=== PATIENT | female | born 1995 | race Caucasian/White ===

== ENCOUNTER 2016-09-13 01:41 | Emergency (ER) ==
[2016-09-13 01:53] VITALS: BP 145/85; TEMP 97.7; BMI 33.0
[2016-09-13 02:13] LABS: ADD URINE MICROSCOPIC YES; BILIRUBIN,URINE Negative (NEGATIVE); KETONES,URINE Trace (NEGATIVE); LEUKOCYTE ESTERASE ,URINE Trace (NEGATIVE); NITRITE,URINE Negative (NEGATIVE); PROTEIN,URINE Negative (NEGATIVE); URINE, BLOOD 2+ (NEGATIVE)
[2016-09-13 02:23] LABS: SPERM,URINE 2+ (NOT PRESENT)
--- NOTE | 2016-09-13 02:25 | ED.PDOC ---
General ED Provider: Dr. FAN OBREGON Chief Complaint: Vaginal Bleeding Stated Complaint: having vaginal bleeding after intercourse today, not changed the pad yet. still bleeding. 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 - Vaginal Bleeding Complaint/Exam Symptoms Are: Still present Timing: Constant Initial Severity: Mild Current Severity: Mild Character: Reports: Bright red Aggravating: Reports: Sorrel Alleviating: Reports: None Associated Signs and Symptoms: Denies: Dizziness, Lightheadedness, Pale, UTI symptoms, Abdominal pain, Cramping, Generalized pain : 2 Para: 1 Ectopic Risk Factors: Reports: None Spontaneous AB Risk Factors: Reports: None Placental Abruption Risk Factors: Reports: None Patient Rh Status: Unknown Related Surgical History: Reports: None Abdominal Findings: Present: None Differential Diagnoses: Threatened AB, Incomplete AB Review of Systems - Review Of Systems Constitutional: Reports: No symptoms Eyes: Reports: No symptoms Ears, Nose, Mouth, Throat: Reports: No symptoms Respiratory: Reports: No symptoms Cardiac: Reports: No symptoms GI: Reports: No symptoms : Reports: Discharge Musculoskeletal: Reports: No symptoms Skin: Reports: No symptoms Neurological: Reports: No symptoms Endocrine: Reports: No symptoms Hematologic/Lymphatic: Reports: No symptoms All Other Systems: Reviewed and Negative Past Medical History - Past Medical History Previously Healthy: Yes Endocrine: Reports: None Cardiovascular: Reports: None Respiratory: Reports: None Hematological: Reports: None Gastrointestinal: Reports: None Genitourinary: Reports: None Neuro/Psych: Reports: None Musculoskeletal: Reports: None Cancer: Reports: None Last Menstrual Period: AUG 06 2016 - Surgical History General Surgical History: Reports: None - Family History Family History: Reports: None - Social History Smoking Status: Former smoker Hx Substance Use: No Alcohol Screening: Occasionally - Immunizations Tetanus Shot up to Date: Yes Physical Exam - Physical Exam Appearance: Well-appearing, No pain distress, Well-nourished Eyes: BAKARI, EOMI, Conjunctiva clear ENT: Ears normal, Nose normal, Oropharynx normal Respiratory: Airway patent, Breath sounds clear, Breath sounds equal, Respirations nonlabored Cardiovascular: RRR, Pulses normal, No rub, No murmur GI/: Soft, Nontender, No masses, Bowel sounds normal, No Organomegaly Musculoskeletal: Normal strength, ROM intact, No edema, No calf tenderness Skin: Warm, Dry, Normal color Neurological: Sensation intact, Motor intact, Reflexes intact, Cranial nerves intact, Alert, Oriented Psychiatric: Affect appropriate, Mood appropriate Critical Care Note - Critical Care Note Total Time (mins): 0 Course - Course Hematology/Chemistry: 09/13/16 02:25 09/13/16 02:25 Orders, Labs, Meds: Lab Review 09/13/16 09/13/16 02:09 02:25 WBC 8.29 RBC 4.07 L Hgb 12.1 Hct 36.2 L MCV 88.9 MCH 29.7 MCHC 33.4 RDW Coeff of Saúl 13.2 Plt Count 250 Immature Gran % (Auto) 0.6 Neut % (Auto) 62.1 Lymph % (Auto) 28.2 [place] % (Auto) 7.6 Eos % (Auto) 1.1 Baso % (Auto) 0.4 Immature Gran # (Auto) 0.1 Neut # 5.2 Lymph # 2.3 [place] # 0.6 Eos # 0.1 Baso # 0.0 Sodium 139 Potassium 4.0 Chloride 105 Carbon Dioxide 23 Anion Gap 15.0 BUN 8 Creatinine 0.78 Estimated GFR (MDRD) 92.00 BUN/Creatinine Ratio 10.25 Glucose 133 H Calcium 9.5 Total Bilirubin 0.28 AST 22 ALT 34 Alkaline Phosphatase 63 Total Protein 7.0 Albumin 3.5 Globulin 3.5 Albumin/Globulin Ratio 1.00 HCG, Quant 1781.73 Urine Color Yellow Urine Clarity Clear Urine pH 6.0 Ur Specific [place] 1.020 Urine Protein Negative Urine Glucose (UA) Negative Urine Ketones Trace Urine Blood 2+ Urine Nitrite Negative Urine Bilirubin Negative Urine Urobilinogen 1.0 Ur Leukocyte Esterase Trace Urine Microscopic RBC 10-20 Urine Microscopic WBC 0-2 Ur Squamous Epith Cells 5-10 Urine Sperm 2+ Orders Category Date Time Status CBC W/ AUTO DIFF Stat LAB 09/13/16 02:25 Completed COMPREHENSIVE METABOLIC PANEL Stat LAB 09/13/16 02:25 Completed HCG,QUANTITATIVE Stat LAB 09/13/16 02:25 Completed UA [URINALYSIS C & S IF INDICATED] Stat LAB 09/13/16 02:09 Completed Vital Signs: Temp Pulse Resp BP Pulse Ox 09/13/16 01:43 97.7 F 103 H 18 145/85 H 98 Departure - Departure Time of Disposition: 03:10 Disposition: HOME SELF-CARE Discharge Problem: Bleeding from vagina Instructions: First Trimester Vaginal Bleed (ED) Condition: Stable Pt referred to PMD for follow-up: Yes Additional Instructions: rest keep legs elevated. F/u with Obgyn Allergies/Adverse Reactions: Allergies codeine Adverse Reaction (Verified 09/13/16 01:53) Hives Home Medications: Ambulatory Orders Citalopram Hydrobromide [Celexa] 40 mg PO DAILY 09/13/16 Pnv95/Ferrous Fumarate/FA [ Tablet] 1 each PO DAILY 09/13/16 Trazodone HCl 50 mg PO BEDTIME PRN 09/13/16 Disposition Discussed With: Patient, Family
[2016-09-13 02:34] LABS: BASOPHILS % (AUTO) 0.4 % (0.0-3.0); EOSINOPHILS # (AUTO) 0.1 K/ul (0.0-0.7); EOSINOPHILS % (AUTO) 1.1 % (0.0-7.0); HEMATOCRIT 36.2 % (37.0-47.0); HEMOGLOBIN 12.1 g/dl (12.0-16.0); IMMATURE GRANULOCYTE % (AUTO) 0.6 % (0.0-5.0); LYMPHOCYTES # (AUTO) 2.3 K/uL (0.60-3.4); LYMPHOCYTES % (AUTO) 28.2 (10.0-50.0); MEAN CORPUSCULAR HEMOGLOBIN 29.7 pg (27.0-31.0); MEAN CORPUSCULAR HGB CONC 33.4 (31.8-35.4); MEAN CORPUSCULAR VOLUME 88.9 fl (81.0-99.0); MONOCYTES # (AUTO) 0.6 K/uL (0.4-2.0); MONOCYTES % (AUTO) 7.6 (0-10); NEUTROPHILS # (AUTO) 5.2 K/ul (2.0-6.9); NEUTROPHILS % (AUTO) 62.1; PLATELET COUNT 250 10^3/uL (140-440); RED BLOOD COUNT 4.07 10^6/ul (4.20-5.40); WHITE BLOOD COUNT 8.29 K/ul (4.6-10.2)
[2016-09-13 02:53] LABS: ALBUMIN 3.5 g/dL (3.4-5.0); BILIRUBIN,TOTAL 0.28 mg/dL (0.00-1.20); BUN/CREATININE RATIO 10.25; CALCIUM 9.5 mg/dL (8.2-10.2); CREATININE 0.78 mg/dL (0.60-1.30)
== END 2016-09-13 03:15 | disposition home or self-care (01) ==
LOC: ED 01:41
DX: N93.9 Abnormal uterine and vaginal bleeding, unspecified (principal); Z33.1 Pregnant state, incidental
CPT/HCPCS: 36415; 80053; 81001; 84702; 85025; 99283

== ENCOUNTER 2017-09-08 16:00 | Outpatient (CLI) ==
[2017-06-13 19:47] VITALS: BMI 41.9
== END 2017-09-08 16:01 | disposition home or self-care (01) ==
LOC: LAB 16:00
PROVIDERS: ATTEND Emergency Medicine
DX: R10.13 Epigastric pain (principal)
CPT/HCPCS: 36415; 80053; 82150; 83690; 85025

== ENCOUNTER 2017-10-07 10:09 | Outpatient (CLI) ==
[2017-06-13 19:47] VITALS: BMI 41.9
== END 2017-10-07 10:10 | disposition home or self-care (01) ==
LOC: RHC 10:09 → RHC-LAB 10:10
PROVIDERS: ATTEND Emergency Medicine
DX: J10.1 Influenza due to other identified influenza virus with other respiratory manifestations (principal)
CPT/HCPCS: 87651; 87804

== ENCOUNTER 2018-01-09 17:49 | Emergency (ER) ==
[2018-01-09 17:55] VITALS: BP 140/106; TEMP 99.7; BMI 40.3
--- NOTE | 2018-01-09 19:14 | ED.PDOC ---
General ED Provider: Dr. MABEL FREED Chief Complaint: Abscess Stated Complaint: Developed reddness and swelling inner rt thigh several days ago. States is walking freq with job and has friction to inner thighs--noted sm red area to inner thigh 2 nites ago--now has increased in size with redness noted--usually pops boils but too painful today and cabrera no longer present , Has been applying prid salve and yesterday her "popped" white head with some minimal drainage. Pain worsened today. 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 Denies fever or chills. Time Seen by Physician: 18:15 Mode of Arrival: Walk-In Information Source: Patient Exam Limitations: No limitations Primary Care Provider[facility] Nursing and Triage Documentation Reviewed and Agree: Yes Reviewed sepsis parameters & appropriate labs ordered?: Yes System Inflammatory Response Syndrome: Not Applicable Sepsis Protocol: For patient's 13 years and over: Temp is 96.8 and below OR 101 and greater Pulse >90 BPM Resp >20/minute Acutely Altered Mental Status Are patient's symptoms suggestive of a new infection, such as: -Pneumonia -Skin, Soft Tissue -Endocarditis -UTI -Bone, Joint Infection -Implantable Device -Acute Abdominal Infection -Wound Infection -Meningitis -Blood Stream Catheter Infection -Unknown System Inflammatory Response Syndrome: Not Applicable Skin Complaint Exam - Skin/Soft Tissue Complaint/Exam Symptoms Are: Still present Timing: Constant Initial Severity: Severe Current Severity: Moderate Location: Rt inner thigh Character: Reports: Redness, Swelling, Raised, Painful Aggravating: Reports: Touch Alleviating: Reports: Medications (Rest) Associated Signs and Symptoms: Reports: Itching, Tenderness. Denies: Fever ( low grade 99deg), Chills, Red streaks Related History: Denies: Similar episode, Recent trauma, Foreign body, Insect bite/sting, Recent Med change Related Surgical History: Reports: None Skin Findings: Present: Erythema, Induration, Skin lesion (sl elevation at site popped by ) Review of Systems - Review Of Systems Constitutional: Reports: Fever Eyes: Reports: No symptoms Ears, Nose, Mouth, Throat: Reports: No symptoms Respiratory: Reports: No symptoms Cardiac: Reports: No symptoms GI: Reports: No symptoms : Reports: No symptoms Musculoskeletal: Reports: No symptoms Skin: Reports: Other (reddness) Neurological: Reports: No symptoms Endocrine: Reports: No symptoms Hematologic/Lymphatic: Reports: No symptoms All Other Systems: Reviewed and Negative Past Medical History - Past Medical History Previously Healthy: Yes Endocrine: Reports: None Cardiovascular: Reports: None Respiratory: Reports: None Hematological: Reports: None Gastrointestinal: Reports: None Genitourinary: Reports: None Neuro/Psych: Reports: None Musculoskeletal: Reports: None Cancer: Reports: None Last Menstrual Period: end november - Surgical History General Surgical History: Reports: None - Family History Family History: Reports: None - Social History Smoking Status: Current every day smoker, Light tobacco smoker Hx Substance Use: No Alcohol Screening: None Physical Exam - Physical Exam Appearance: Well-appearing (some pain ), Well-nourished Ill-appearing: None Pain Distress: Mild Eyes: BAKARI, EOMI, Conjunctiva clear ENT: Ears normal, Nose normal, Oropharynx normal Respiratory: Airway patent, Breath sounds clear, Breath sounds equal, Respirations nonlabored Cardiovascular: RRR, Pulses normal, No rub, No murmur GI/: Soft, Nontender, No masses, Bowel sounds normal, No Organomegaly Musculoskeletal: Normal strength, ROM intact, No edema, No calf tenderness Skin: Warm, Dry, Normal color (18 X 10 cm area of erythrema inner mid rt thigh with central indurated area. no drainage) Neurological: Sensation intact, Motor intact, Reflexes intact, Cranial nerves intact, Alert, Oriented Psychiatric: Affect appropriate, Mood appropriate Critical Care Note - Critical Care Note Total Time (mins): 0 Course - Course Vital Signs: Temp Pulse Resp BP Pulse Ox 01/09/18 17:50 99.7 F H 130 H 20 140/106 H 96 Departure - Departure Time of Disposition: 19:15 Disposition: HOME SELF-CARE Discharge Problem: Cellulitis of right thigh, Abscess Instructions: Cellulitis (ED), Abscess (ED) Condition: Good Pt referred to PMD for follow-up: Yes (2-3 days/no work until follow u ) IPMP verified?: No Additional Instructions: Keep Rt Leg elevated, Apply warm moist heat for 20 min periods several times daily, apply drawing salve daily Take antibiotics as directed See PCP in 2 days Return to ER prn and if abscess worsens Allergies/Adverse Reactions: Allergies grapefruit Allergy (Severe, Verified 01/09/18 17:57) face swelling Patient to notify drugstore codeine Adverse Reaction (Verified 01/09/18 17:57) Hives steroids Adverse Reaction (Uncoded 01/09/18 17:57) Home Medications: Ambulatory Orders Buspirone HCl 5 mg PO d 09/08/17 Citalopram Hydrobromide [Celexa] 10 mg PO d 09/08/17 Norgestimate-Ethinyl Estradiol [Ortho Tri-Cyclen Lo Tablet] 1 each PO d Clindamycin HCl 300 mg PO QID #40 capsule 01/09/18 Hydrocodone/Acetaminophen [Collbran 5-325 Tablet] 1 each PO Q6HR PRN #10 tablet Disposition Discussed With: Patient, Family
== END 2018-01-09 19:32 | disposition home or self-care (01) ==
LOC: ED 17:49
DX: L02.415 Cutaneous abscess of right lower limb (principal); L03.115 Cellulitis of right lower limb; F17.210 Nicotine dependence, cigarettes, uncomplicated
CPT/HCPCS: 99282

== ENCOUNTER 2018-01-12 12:32 | Outpatient (CLI) | END 2018-01-12 12:33 | disposition home or self-care (01) | LOC: FCC-LAB 12:32 | PROVIDERS: ATTEND Family Medicine | DX: L02.91 Cutaneous abscess, unspecified (principal) | CPT/HCPCS: 87070 ==

== ENCOUNTER 2018-08-16 18:46 | Emergency (ER) ==
[2018-08-16 18:48] VITALS: TEMP 97.6; BMI 43.5
--- NOTE | 2018-08-16 18:58 | ED.PDOC ---
General ED Provider: Dr. MABEL MELGAR-ER Chief Complaint: Sore Throat Stated Complaint: my sinuses are draining and i am coughing up yellow stuff Time Seen by Physician: 18:56 Mode of Arrival: Walk-In Information Source: Patient Exam Limitations: No limitations Primary Care Provider: CLEMENTE AGUILA Nursing and Triage Documentation Reviewed and Agree: Yes Does patient meet sepsis criteria?: No System Inflammatory Response Syndrome: Not Applicable Sepsis Protocol: For patient's 13 years and over: Temp is 96.8 and below OR 101 and greater Pulse >90 BPM Resp >20/minute Acutely Altered Mental Status Are patient's symptoms suggestive of a new infection, such as: -Pneumonia -Skin, Soft Tissue -Endocarditis -UTI -Bone, Joint Infection -Implantable Device -Acute Abdominal Infection -Wound Infection -Meningitis -Blood Stream Catheter Infection -Unknown Respiratory Complaint Exam - Respiratory Complaint/Exam Onset/Duration: 3 days Symptoms Are: Still present Timing: Intermittent Initial Severity: Mild Current Severity: Moderate Location: Nose, Chest Character: Reports: Productive cough Aggravating: Reports: URI Alleviating: Reports: Spontaneous resolution Associated Signs and Symptoms: Reports: URI, Nasal congestion, Sore throat. Denies: Rapid breathing, Dyspnea, Fever, Chills, Chest pain, Pleuritic chest pain, Wheezing, Hemoptysis, Dizziness, Calf pain, Calf swelling, Edema Home Oxygen Use: No Recent Stress Test: No Recent Echo/LV Function: No Current Antibiotic Use: No Current Asthma Medication Use: No Respiratory Distress: None Inadequate Respiratory Effort: No Dysphagia Present: No Stridor Present: No JVD Present: No Accessory Muscle Use: No Retractions: Not Present Sinus Tenderness: Maxillary Grunting Respirations: No Kussmaul Respirations: No Differential Diagnoses: Sinusitis, URI Review of Systems - Review Of Systems Constitutional: Reports: No symptoms Eyes: Reports: No symptoms Ears, Nose, Mouth, Throat: Reports: Nose discharge, Throat pain Respiratory: Reports: Cough Cardiac: Reports: No symptoms GI: Reports: No symptoms : Reports: No symptoms Musculoskeletal: Reports: No symptoms Skin: Reports: No symptoms Neurological: Reports: No symptoms Endocrine: Reports: No symptoms Hematologic/Lymphatic: Reports: No symptoms All Other Systems: Reviewed and Negative Past Medical History - Past Medical History Previously Healthy: Yes Endocrine: Reports: None Cardiovascular: Reports: None Respiratory: Reports: None Hematological: Reports: None Gastrointestinal: Reports: None Genitourinary: Reports: None Neuro/Psych: Reports: None Musculoskeletal: Reports: None Cancer: Reports: None Last Menstrual Period: two weeks - Surgical History General Surgical History: Reports: None - Family History Family History: Reports: None - Social History Smoking Status: Former smoker Hx Substance Use: No Alcohol Screening: Occasionally - Immunizations Tetanus Shot up to Date: Yes Physical Exam - Physical Exam Appearance: Well-appearing, No pain distress, Well-nourished Eyes: BAKARI, EOMI, Conjunctiva clear ENT: Ears normal, Nose normal, Oropharynx normal, Rhinorrhea Neck: Supple Respiratory: Rhonchi Cardiovascular: RRR, Pulses normal, No rub, No murmur GI/: Soft Musculoskeletal: Normal strength, ROM intact, No edema, No calf tenderness Skin: Warm, Dry, Normal color Neurological: Sensation intact, Motor intact, Reflexes intact, Cranial nerves intact, Alert, Oriented Psychiatric: Affect appropriate, Mood appropriate Critical Care Note - Critical Care Note Total Time (mins): 0 Course - Course Orders, Labs, Meds: Orders Category Date Time Status FLU A/B MOLECULAR Stat LAB 08/16/18 18:51 Ordered MOLECULAR GROUP A STREP Stat LAB 08/16/18 18:51 Ordered Vital Signs: Temp Pulse Resp BP Pulse Ox 08/16/18 18:54 108 H 151/102 H 98 08/16/18 18:46 97.6 F 111 H 18 164/111 H 99 Departure - Departure Time of Disposition: 18:58 Disposition: HOME SELF-CARE Discharge Problem: Bronchitis, Elevated blood pressure reading Sinusitis Qualifiers: Sinusitis location: unspecified location Chronicity: acute Recurrence: non- recurrent Qualified Code(s): J01.90 - Acute sinusitis, unspecified Instructions: Rhinosinusitis (ED) Condition: Good Pt referred to PMD for follow-up: Yes IPMP verified?: No Additional Instructions: augmentin 875mg bid x 10 days --flonase nasal spray one puff each nostril bid -- -tessalon perles 200mg tid prn cough 30---avoid all cold meds due to your bp---f /u with pcp Allergies/Adverse Reactions: Allergies grapefruit Allergy (Severe, Verified 08/16/18 18:49) face swelling Patient to notify drugstore clindamycin Allergy (Intermediate, Unverified 08/16/18 18:49) rash maculopapular rash acrally. Observed. codeine Adverse Reaction (Verified 08/16/18 18:49) Hives steroids Adverse Reaction (Uncoded 08/16/18 18:49) Home Medications: Ambulatory Orders Norgestimate-Ethinyl Estradiol [Ortho Tri-Cyclen Lo Tablet] 1 each PO d Disposition Discussed With: Patient
[2018-08-16 19:18] VITALS: BP 143/97
== END 2018-08-16 19:55 | disposition home or self-care (01) ==
LOC: ED 18:46
DX: J02.9 Acute pharyngitis, unspecified (principal); R09.81 Nasal congestion; R05 Cough; J06.9 Acute upper respiratory infection, unspecified; R07.0 Pain in throat; J01.90 Acute sinusitis, unspecified
CPT/HCPCS: 87502; 87651; 99283

== ENCOUNTER 2018-09-30 14:19 | Outpatient (CLI) | END 2018-09-30 14:20 | disposition home or self-care (01) | LOC: LAB 14:19 | PROVIDERS: ATTEND Family Medicine | DX: F41.1 Generalized anxiety disorder (principal); F33.1 Major depressive disorder, recurrent, moderate; Z68.41 Body mass index [BMI] 40.0-44.9, adult | CPT/HCPCS: 36415; 80053; 84443; 85025 ==

== ENCOUNTER 2018-10-05 08:04 | Outpatient (CLI) | END 2018-10-05 08:05 | disposition home or self-care (01) | LOC: LAB 08:04 | PROVIDERS: ATTEND Family Medicine | DX: F41.1 Generalized anxiety disorder (principal); Z68.41 Body mass index [BMI] 40.0-44.9, adult; R74.8 Abnormal levels of other serum enzymes | CPT/HCPCS: 36415; 84439; 84480 ==

== ENCOUNTER 2019-09-20 12:36 | Observation (INO) ==
[2019-09-20 13:05] VITALS: BMI 43.5
[2019-09-20] MEDS ORDERED: KLONOPIN PO SCH (13:16)
[2019-09-20] MEDS ORDERED: KLONOPIN PO PRN (13:30)
[2019-09-20] MEDS ORDERED: TYLENOL PO PRN (16:24)
[2019-09-20] MEDS ORDERED: DECADRON 10 MG/ML SDV (RHC/FCC ONLY) IM STA (16:26)
[2019-09-20] MEDS ORDERED: PHENERGAN 25 MG/ML VIAL ONE ×2 (16:33→23:17)
[2019-09-20] MEDS: ROCEPHIN 1 GM/50 ML D5W 1 GM/50 ML BAG IV SCH (16:39)
[2019-09-20] MEDS: SODIUM CHLORIDE 1,000 ML IV SCH ×2 (16:40→23:10)
[2019-09-20] MEDS: PHENERGAN 25 MG/ML VIAL 25 MG in SODIUM CHLORIDE 50 ML IV PRN ×2 (16:41→23:24)
--- NOTE | 2019-09-20 16:45 | PCM ---
History of Present Illness History of Present Illness: Mrs. Debi Torres is a 24 YO CF with 48 hours history of worsening sore throat L>>R. She has history of 10+ years of tobacco 1/2 ppd. She reports children at home sick, work related sick contacts. 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 Tired of the medical world, tired of the anxiety, she changed over to working at [employer]. She is vaping now more than using cigarettes. She and I discussed this in clinic 09/19/19 and again today in hospital in room 108. She did not want nicotine patch at this time. Reviewed outpatient note from 09/19/19. She presented with c/o pain in the left anterior neck, systemic/myalgias, chills and fever. As of 09/19/19 24 hours of decreased PO intake for foods solids and liquids. She has had fever 102.4 but was 99.9 in clinic 09/19/19. She had taken tylenol 2 hours prior to eval by me on 09/19/19. Nyquil was not helping. She has had nausea prominently without emesis/diarrhea up until our visit 09/19/19. LMP 3 weeks to 1 month ago. no chance she could be per here report. PARISH generalized rated at 4/10. PARISH, body aches, fever, chills, sore throat. Minimal cough. She has had flu vaccination for the flu season. She was tachycardic, Exudate on tonsils, prominent tender anterior cervical LN zone 2. I ordered molecular strep and flu and she returned + for streptococcus but negative for influenza. I received a call early this am that she had emesis 2-3 x, blood tinged sputum, facial flushing, decreased PO intake for solids and liquids. She reports abdominal pain, myalgias, anterior neck pain, throat pain, worse with swallowing anything. Tylenol/motrin at home have not really helped. She noted she was feeling dizzy, feeling dehydrated and did not know what to do. I offered her return to clinic, outpatient fluids, admit for obs and give her IV abx and fluids as she has not yet been able to take any of the abx. I did give her rocephin 1 gram in clinic yesterday and she was instructed to take amoxil 500 BID starting today. She was unable to get this, unable to take anything PO. With her symptoms and inability to tolerate PO and Nausea/emesis x 2 I recommended short course of observation. At this time she would likely benefit from being monitored. She presented to hospital and was admitted to room 108 under my care. I saw patient after clnic at 1545 and discussed the above with her. She was aware of strep +, flu negative status. She still c/o 5/10 throat pain, 4/10 PARISH generalized w/o radiation. No nuchal stiffness, she is supple. Weight unchanged, vitals are stable, Afebrile. She noted she does not feel any better after the rocephin 1 gram IM. I have ordered 1 L NS and I have ordered 160ml/hour of maintenance fluids to make sure that she is not dehydrated. CBC/CMP in the am. She has had 2 bouts of emesis, no diarrhea. No skin rash. She has no rash under breasts, axilla, groin, no issues with extremities. Pain in throat has not improved at all, unable to drink liquids due to pain. She has been using tylenol/motrin. No pain in abdomen. No pain in pelvic region. +Myalgias, + back pain, neck pain, cervical pain. Tobacco use/Vaping. LMP 3.5 weeks ago. She is aware of reaction to prednisone. I discussed decadron as a means to improve her symptoms. If any GI issues will provide short course of PPI. Exam: Vital Signs Temp 97.9 F 09/20/19 16:45 Pulse 98 H 09/20/19 16:45 Resp 19 09/20/19 16:45 BP 138/74 09/20/19 16:45 Pulse Ox 98 09/20/19 16:45 Intake & Output 09/19/19 09/20/19 09/20/19 23:59 11:59 23:59 Intake Total 240 / 240 Balance 240 / 240 Weight 270 lb Intake: Oral 240 / 240 Other: Meal Lunch Percent of Meal Consumed 100% Voiding Method Toilet Height 5 ft 6 in Body Mass Index (BMI) 43.5 Constitutional: Appearance-No acute distress, no respiratory distress. Facial flushing is present. Appears Consistent with stated age. Orientation- Oriented x 3, alert Gait-Normal pace, normal arm movement. Build and Nutrition-[obese female] General- Patient is pleasant and cooperative with the interview and exam. Integumentary: General-No rashes, Kimberly present. No rash under breast, inner thigh buttock. Full skin exam completed. Small healing ? boil right posterior flank. NO cellulitis. NO other skin changes. Palpation- Normal skin moisture/turgor. Skin is warm to touch, appropriate. Capillary refill is normal bilateral Upper and lower extremity. Head/Neck: Head- normocephalic and atraumatic. Neck- without visible/palpable lumps or pulsations. Palpation- No bony tenderness about head/neck along frontal, occipital, temporal, parietal, mastoid, zygoma, orbit or any other location. NO temporal artery tenderness. No TMJ tenderness. Neck Supple. Thyroid-No thyromegaly, no nodules LN: Prominent zone [address] R=L. Tenderness present. Eye: Bilaterally PERRLA, EOMI. No discharge. Upper and lower eyelids are normal. Sclera/conjunctiva normal without discharge. Cornea is normal and clear. Lens is normal. Eyeball appears normal. No ciliary flushing, no conjunctival injection. ENMT: Pinna- normal without tenderness or erythema. External auditory canal Left- normal without erythema or discharge, no excessive cerumen. External auditory canal Right-normal without erythema or discharge, no excessive cerumen. TM left- Cee/pearly, normal light reflex and anatomy TM Right- Cee/pearly, normal light reflex and anatomy Hearing Assessment-normal to conversational speech. Nose and sinus- No sinus tenderness along frontal/maxillary region. External appearance normal and midline. Nares- bilateral quiet airflow, no discharge. Nasal mucosa- No bleeding noted and no ulcerations observed. [place], moist. Turbinates non boggy. Lips- normal color, moist without cracks/lesions Oral Cavity/Palate- hard/soft palate intact without lesions, oral mucosa pink and moist. Dentition assessed [and average/good] and discussed appropriate oral care. Tongue normal midline. Oropharynx- pharyngeal erythema, Uvula midline. palatal arch intact. Tonsils with exudate, 3+ tonsils. No obvious post nasal drip. No exudate. Salivary glands- Non tender to palpation CHEST/LUNG: Inspection- symmetric chest wall no pectus deformity. Normal effort, no distress, no use of accessory muscles. Palpation- nontender sternum, ribline. No abnormal pulsations. Auscultation- Breath sounds normal throughout all lung pedroza. Normal tracheal sounds, Normal bronchial sounds overlying sternum, Bronchovessicular sounds normal between scapulae posteriorly, Normal vessicular breath sounds heard throughout periphery. Lungs are clear today. Adventitious sounds- No wheezes, rales, rhonchi. CARDIOVASCULAR: Carotid artery- normal, no bruits or abnormal pulsations. Jugular vein- no pulsations. Palpation/Percussion- Normal PMI, no palpable thr ill Auscultation- Regular rate and rhythm. No murmur noted in sitting, supine positions. Extremities- no digital clubbing, cyanosis, edema, increased warmth. ABDOMEN: Inspection- normal and no visible pulsations. Normal contour. Auscultation- Bowel sounds normal, no abdominal bruits. Palpation/Percussion- soft, non-tender, no rebound tenderness, no rigidity (guarding), no jar tenderness, no masses. Liver-no hepatomegaly, Spleen no splenomegaly, Hernias- none. Rectal not examined. Peripheral Vascular: Upper extremity Left- Normal temperature with pink nailbeds and no ulcerations. Upper extremity Right- Normal temperature with pink nailbeds and no ulcerations. Lower extremity- Normal temperature with pink nailbeds and no ulcerations. DP pulses 2+ bilaterally. Pedal hair intact. Normal capillary refill. Edema- No edema. Musculoskeletal: Generalized-No generalized swelling or edema of extremities, no digital clubbing or cyanosis, neurovascularly intact all four extremities. Upper extremity- Symmetrical posture. No visible deformity. Normal sensation along medial and lateral upper extremity proximally and distally. NO tenderness overlying shoulder, lateral/medial epicondyle. Studio Technician Video Operator 5/5 and strength 5/5 bilateral UE. Elbow palpated, no tenderness overlying olecranon. Normal supination, pronation to active/passive ROM and to resisted rotation. Bicep insertion/tricep insertion appear normal without obvious pathology. Rotator cuff evaluated and intact. Normal wrist ROM bilaterally. Normal hand movement, intrinsic muscles of hands normal. No tenderness to palpation of hands/wrists/elbows. Lower extremity- Hip: Not tender to palpation, no pain, no swelling, edema or erythema of surrounding tissue, normal strength and tone. Normal appearing hip ROM bilaterally without pain. Knee: Knee ROM normal. No tenderness overlying trochanters, no tenderness about patella, quad tendon, patellar tendon. No tenderness at tibial tuberosity. Ankle: normal ROM not tender to palpation along medial/lateral malleolus. Foot: Normal movement of toes, no tenderness bilateral feet/toes. Normal foot type. Spine/Ribs- No deformities, masses or tenderness, no known fractures, normal strength, Normal ROM. Normal stability No tenderness along C/T/L spine. Normal appearing ROM about spine. Neurological: General- Moves all 4 extremities symmetrically. Symmetrical face and body posture. Cranial nerves- individually evaluated II-XII and intact. PERRLA, Normal EOMI, visual/special senses appear intact, Face is symmetrical and normal sensation/movement, normal tongue, normal strength/posture of neck musculature. Reflexes- intact with DTR 2+ patellar, Achilles, bicep, brachial, tricep. Ankle clonus normal with 2 beats. Strength- 5/5 bilateral UE and LE. Soft touch- intact bilateral UE and LE. Temperature sensation- intact bilateral UE and LE. . Neuropsych: Oriented- Person, place, time. (AAOx3), Mood/affect- normal and congruent. Able to articulate well. Speech-Normal speech, normal rate, normal tone, normal use of language, volume and coherence. Thought content- normal with ability to perform basic computations and apply abstract thought/reason. Associations- intact, no SI/HI, no hallucinations, delusions, obsessions. Judgment/insight- Appropriate. Memory-Recall intact, remote and recent memory intact. Knowledge- Age appropriate fund of knowledge, concentration and attention span normal. Lymphatic: Head/Neck- normal size and non tender to palpation except for zone [address] Axillary- normal size and non tender to palpation. Femoral and Inguinal- normal size and non tender to palpation. Review of Systems Constitutional: Reports fever, chills, weakness, fatigue and loss of appetite Eyes: Denies blurred vision, double-vision, discharge, itching, pain and redness Ears: Denies pain, bleeding, drainage and ringing Nose: Denies bleeding, congestion and discharge Throat: Reports pain and swelling; Denies voice change Mouth: Denies bleeding, pain and swelling Respiratory: Denies cough, shortness of air, wheeze, hemoptysis and pain with breathing Cardiovascular: Denies chest pain, left arm pain, diaphoresis, PND, orthopnea, edema and palpitations Gastrointestinal: Reports nausea and vomiting; Denies abdominal pain, diarrhea, melena, hematemesis, hematochezia and dysphagia Genitourinary: Denies dysuria, hematuria, frequency, incontinence, flank pain, vaginal discharge and abnormal bleeding Neurological: Reports headache, dizziness and weakness; Denies seizure, numbness, speech difficulty and problems with walking Musculoskeletal: Reports pain (myalgia generalized. ) Skin: Denies rash, pruritus and lacerations Immunology: Denies hives Hematology: Denies easy bruising Endocrine: Denies weight changes Psychiatric: Reports anxiety and sleeplessness; Denies depression, hopelessness, suicidal and hallucinations Habits: Reports tobacco use Allergies Allergies Allergy/AdvReac Type Severity Reaction Status Date / Time grapefruit Allergy Severe face Verified 09/19/19 13:19 swelling clindamycin Allergy Intermediate rash Verified 09/19/19 13:19 prednisone AdvReac Intermediate stomach Verified 09/19/19 14:30 issues codeine AdvReac Hives Verified 09/19/19 13:19 [facility] Medical History Anxiety Hypertension Family History (Updated 09/20/19 @ 12:46 by ZACKARY CASIANO RN) Mother Diabetes Hypertension Father Bone cancer BROTHER Chronic mental illness Asthma MATERNAL GRANDMOTHER Cervical cancer Social History Smoking and tobacco status: Current every day smoker Tobacco type: e-cigarettes Quit status: not considering quitting Alcohol intake: never Substance use type: does not use [place]/latter day: NONE Household members: spouse and children Marital status: M Lives independently: Yes Daycare: no daycare Number of children: 2 Number of grandchildren: 0 Highest education level completed: Associate degree: occupational, technical, vocational program Current occupational status: employed Sexually active: Yes Do you think of yourself as: straight/heterosexual Current gender identity: female Seatbelt use: always Drives intoxicated or rides with intoxicated tractor driver: No Water heater temperature set < 120 degrees: Yes Working smoke detector in home: Yes Fire extinguisher in home: Yes Carbon monoxide detector in home: Yes Firearms in home: Yes Firearms unloaded and locked: Yes Medications Medications: Medications Generic Name Dose Route Start Last Admin Trade Name Freq PRN Reason Stop Dose Admin Acetaminophen 500 mg 09/20/19 16:24 Tylenol PO Q8H PRN fever pain Clonazepam 0.5 mg 09/20/19 13:30 Klonopin PO DAILY PRN ANXIETY Enoxaparin Sodium 40 mg 09/21/19 09:00 Lovenox SUBCUT DAILY COUNT INCLUDES THE [facility] Sodium Chloride 1,000 mls @ 160 mls/hr 09/20/19 16:30 Sodium Chloride IV .Q6H15M COUNT INCLUDES THE [facility] CEFTRIAXONE/D5W 1 GM PREMIX 1 gm in 50 mls @ 75 mls/hr 09/20/19 16:30 Rocephin 1 Gm/50 Ml D5w IV 09/23/19 16:29 DAILY COUNT INCLUDES THE [facility] Promethazine HCl 25 mg/ Sodium 51 mls @ 75 mls/hr 09/20/19 16:23 Chloride IV Q6H PRN Nausea Non-Formulary Medication 200 mg 09/20/19 21:00 Fluvoxamine PO BEDTIME COUNT INCLUDES THE [facility] Non-Formulary Medication 1 each 09/20/19 21:00 Norgestimate-Ethinyl Estradiol [Ortho Tri-Cyclen Lo (28)] PO BEDTIME COUNT INCLUDES THE [facility] Body Composition Height: 5 ft 6 in Weight: 270 lb Body Mass Index (BMI): 43.5 Vital Signs Temperature: 97.9 F Pulse Rate: 98 Respiratory Rate: 19 Blood Pressure: 138/74 O2 Sat by Pulse Oximetry: 98 Physical Examination Appearance: Reports Well-appearing, Ill-appearing and Obese Ill-appearing: Moderate Eyes: Reports BAKARI, EOMI and Conjunctiva clear ENT: Reports Ears normal and Nose normal; Denies Oropharynx normal Neck: Supple Respiratory: Reports Airway patent, Breath sounds clear, Breath sounds equal and Respirations nonlabored; Denies Crackles, Rhonchi, Wheezes and Retractions Cardiovascular: Reports RRR, Pulses normal and No murmur; Denies No rub, Irregular rhythm, Tachycardia, Bradycardia, Abnormal pulses and Murmur GI/: Reports Soft, Nontender, Bowel sounds normal and No Organomegaly; Denies Tender, Mass, Hepatomegaly and Splenomegaly Musculoskeletal: Reports Normal strength, ROM intact, No edema and No calf tenderness; Denies Limited ROM and Limited strength Skin: Reports Warm, Dry and Normal color; Denies Pale and Diaphoretic Neurological: Reports Sensation intact, Motor intact, Reflexes intact, Cranial nerves intact, Alert and Alert to pain Psychiatric: Reports Affect appropriate and Mood appropriate Lab/Tests/Diagnostic Imaging Lab/Tests/Diagnostic Imaging: Orders Category Date Time Status PLACE PATIENT OBSERVATION .TO MEDSUR (MONITORED BED ADMISSION 09/20/19 16:23 Active ) OXYGEN Routine CARDIO 09/20/19 16:21 Ordered ACTIVITY .Up ad Lorraine CARE 09/20/19 16:20 Active INTAKE & OUTPUT Q8HR CARE 09/20/19 16:20 Active TELEMETRY MONITORING TELE CARE 09/20/19 16:23 Active VITAL SIGNS Q8HR CARE 09/20/19 16:20 Active REGULAR DIET DIETARY 09/20/19 Dinner Ordered CBC W/ AUTO DIFF DAILY@0600 LAB 09/21/19 06:00 Ordered CBC W/ AUTO DIFF DAILY@0600 LAB 09/22/19 06:00 Ordered COMPREHENSIVE METABOLIC PANEL DAILY@0600 LAB 09/21/19 06:00 Ordered COMPREHENSIVE METABOLIC PANEL DAILY@0600 LAB 09/22/19 06:00 Ordered Acetaminophen [Tylenol] MEDS 09/20/19 16:24 Active 500 mg PO Q8H PRN Ceftriaxone/D5w 1 gm Premix [Rocephin 1 gm/50 ml D5w] MEDS 09/20/19 16:30 Active 1 gm in 50 ml IV DAILY Clonazepam [Klonopin] MEDS 09/20/19 13:16 Discontinued 0.5 mg PO DAILY Clonazepam [Klonopin] MEDS 09/20/19 13:30 Active 0.5 mg PO DAILY PRN Dexamethasone Sod Phosphate [Decadron 10 mg/ml Sdv (c MEDS 09/20/19 16:26 Discontinued /[facility] Only)] 8 mg IM ONCE STA Enoxaparin Sodium [Lovenox] MEDS 09/21/19 09:00 Active 40 mg SUBCUT DAILY Promethazine HCl [Phenergan 25 mg/ml Vial] MEDS 09/20/19 16:33 Discontinued 25 mg .ROUTE .STK-MED ONE Promethazine HCl [Phenergan 25 mg/ml Vial] 25 mg MEDS 09/20/19 16:23 Active 0.9 % Sodium Chloride [Sodium Chloride] 50 ml IV Q6H Sodium Chloride 0.9% [Sodium Chloride] 1,000 ml MEDS 09/20/19 16:30 Active IV 160 mls/hr fluvoxamine MEDS 09/20/19 21:00 Active 200 mg PO BEDTIME norgestimate-ethinyl estradiol [Ortho Tri-Cyclen LO (28 MEDS 09/20/19 21:00 Active )] 1 each PO BEDTIME RESUSCITATION STATUS Routine OTHERS 09/20/19 12:57 Ordered Medications Generic Name Dose Route Start Last Admin Trade Name Freq PRN Reason Stop Dose Admin Acetaminophen 500 mg 09/20/19 16:24 Tylenol PO Q8H PRN fever pain Clonazepam 0.5 mg 09/20/19 13:30 Klonopin PO DAILY PRN ANXIETY Enoxaparin Sodium 40 mg 09/21/19 09:00 Lovenox SUBCUT DAILY COUNT INCLUDES THE [facility] Sodium Chloride 1,000 mls @ 160 mls/hr 09/20/19 16:30 Sodium Chloride IV .Q6H15M [facility] CEFTRIAXONE/D5W 1 GM PREMIX 1 gm in 50 mls @ 75 mls/hr 09/20/19 16:30 Rocephin 1 Gm/50 Ml D5w IV 09/23/19 16:29 DAILY COUNT INCLUDES THE [facility] Promethazine HCl 25 mg/ Sodium 51 mls @ 75 mls/hr 09/20/19 16:23 Chloride IV Q6H PRN Nausea Non-Formulary Medication 200 mg 09/20/19 21:00 Fluvoxamine PO BEDTIME AKUA Non-Formulary Medication 1 each 09/20/19 21:00 Norgestimate-Ethinyl Estradiol [Ortho Tri-Cyclen Lo (28)] PO BEDTIME AK[facility] Discontinued Medications Generic Name Dose Route Start Last Admin Trade Name Freq PRN Reason Stop Dose Admin Clonazepam 0.5 mg 09/20/19 13:16 09/20/19 14:18 Klonopin PO Not Given DAILY COUNT INCLUDES THE [facility] Dexamethasone Sodium Phosphate 8 mg 09/20/19 16:26 Decadron 10 Mg/Ml Sdv (Rhc/Fcc Only) IM 09/20/19 16:27 ONCE STA Assessment (1) Strep pharyngitis: Status: Acute Code(s): J02.0 - Streptococcal pharyngitis SNOMED Code(s): 65426947 (2) Smokes 1/2 pack a day or less: Status: Acute Code(s): F17.210 - Nicotine dependence, cigarettes, uncomplicated SNOMED Code(s): 478992927 (3) Dehydration: Status: Acute Code(s): E86.0 - Dehydration SNOMED Code(s): 43513935 (4) BMI 40.0-44.9, adult: Status: Acute Code(s): Z68.41 - Body mass index (BMI) 40.0-44.9, adult SNOMED Code(s): 462033715 (5) Emesis: Status: Acute Code(s): R11.10 - Vomiting, unspecified SNOMED Code(s): 412181941 Plan Plan: Strep Pharyngitis: [facility] day 1, dose #2. She has not had oral abx yet, no ability to tolerate liquids. We reviewed the Ddx viral URI with post nasal drip, strep pharyngitis, mononucleosis, viral pharyngitis such as herpangina H/F/M syndrome, influenza, tonsillar abscess. Uvula is midline, she has no deviation of the palatal arch. Tender anterior cervical LN. Patient has acute pharyngitis by history and exam without improvement 24 hours after IM abx in clinic. She has failed to obtain outpatient abx. Reviewed exposures and travel. We discussed antibiotic options, to include PCN (Amoxil as first line) and macrolides as first line therapy and we will continue 10 day course of amoxil once she is tolerating PO again. Discussed risks/benefits allergies to medications today. Due to strep and strep treatment, would recommend disposal of tooth brush. NO school or work until fever free 24 hours or after 24 hours of abx if no fever. Gargle salt water BID. Fluid hydration encouraged. We discussed R/B/A to steroids. She has allergy to prednisone w/ GI upset. WE discussed today the need to use this to reduce swelling/pain in throat. Consider CT of neck if not improving. No e/o palatal arch changes or tonsillar abscess clinically. No raspy voice. NO thyroid nodules, no thyroid fullness, no voice change in general. Risks/benefits of abx and steroids discussed with patient today. Decadron, dexamethasone, methylprednisolone, prednisone. Pt notified of potential pros/risks of steroid treatment including rapid improvement of condition; allergic reaction, psychologic reaction (depression, anxiety, insomnia), skin change at injection site (color, dimpling), muscle weakness, changes in blood sugar, cataracts/glaucoma, AVN. This list is not all inclusive and patient is aware they may refuse treatment. - Admit observation - Telemetry - CBC/CMP in am 09/21/19 - Rocephin 1 gram IV daily until tolerating PO intake. - tylenol 500 Q 8 hours. - Decadron 8mg IM once. Dehydration: No urinary symptoms. LMP up to date. Phenergan 25mg q 8 hours IV PRN. - 1 L NS fluid bolus - 160ml/hour NS Vaping: Tobacco Cessation discussed today for 2 minutes. We reviewed lifestyle choices and discussed quitting. Ready to quit status discussed. The risks and hazards of continued tobacco abuse were discussed with the patient today and total tobacco cessation as recommended. It was clearly and unambiguously explained that continued tobacco usage will adversely affect overall morbidity and mortality of the patient. Patient was informed that tobacco use can lead to numerous cancers, worsening of cardiovascular and pulmonary systems and that lung damage is often permanent and irreversible. I advised the patient to inform me if any further assistance is requested, as we can offer counseling services, nicotine replacement inhaled, patch, lozenge, gum, or prescription medications to include Chantix or Wellbutrin for assistance. I will reassess the interest in tobacco cessation at the next and all subsequent visits. Diet: Regular diet as tolerated. DVT Prophylaxis: 40mg subcutaneous lovenox. - Lovenox 40mg subcutaneous. BMI 43: Discussed the federal guidelines suggest a healthy goal BMI of 18.5-24.9 for people 18-65 and 23-30 for people age 65 and older. Overweight is considered BMI 25-30, Obesity 30-40 and Morbid obesity is defined as >100 lb overweight or BMI >40. With a BMI above goal, it is recommended to utilize a diet/exercise program to get back into the appropriate range. Consider referral to geoint analyst. For BMI >40 consider referral to bariatrics. If not already monitoring intake. I would recommend at least to keep a food diary. Document everything that is consumed into a food diary. Studies have shown that patients can lose up to 2x the weight by keeping track of foods. Offered handout on weight loss techniques. Apps that may be of benefit include [employer] [place] [employer], Lose it. Regular exercise encouraged. Start with walking 5-10 minutes at a pace th at is difficult to carry a conversation. If chest pain/SOA stop and f/u in office. Outpatient w/u encouraged. Anxiety: Chronic established problem. Current Status STABLE. Continue home meds. Activity: Ad lorraine. Disposition: 50 minute spent face to face admission today. Labs ordered for tomorrow. Fluids ordered, IV abx ordered. Advance diet as tolerated. Suspect 24-48 hours hospital stay.
[2019-09-20] MEDS ORDERED: SODIUM CHLORIDE 1,000 ML IV SCH (17:00)
[2019-09-20] MEDS: MORPHINE 2 MG/ML SYRINGE IVP PRN (20:42)
[2019-09-20] MEDS ORDERED: FLUVOXAMINE 200 MG PO SCH (21:00)
[2019-09-20] MEDS ORDERED: NORGESTIMATE ETHINYL ESTRADIOL PO SCH (21:00)
[2019-09-21] MEDS: MORPHINE 2 MG/ML SYRINGE IVP PRN (03:17)
[2019-09-21 05:08] VITALS: BP 116/78; TEMP 97.6
[2019-09-21 05:27] LABS: HEMATOCRIT 36.1 % (37.0-47.0)
--- NOTE | 2019-09-21 07:45 | PCM.DC ---
Final Diagnosis: 1. Strep Pharyngitis 2. Emesis with Dehydration 3. Chronic anxiety: stable, on benzo 4. BMI 43.6 5. Vaping (1) Strep pharyngitis: Status: Acute Code(s): J02.0 - Streptococcal pharyngitis SNOMED Code(s): 58192873 (2) Smokes 1/2 pack a day or less: Status: Acute Code(s): F17.210 - Nicotine dependence, cigarettes, uncomplicated SNOMED Code(s): 719671327 (3) Dehydration: Status: Acute Code(s): E86.0 - Dehydration SNOMED Code(s): 24097148 (4) BMI 40.0-44.9, adult: Status: Acute Code(s): Z68.41 - Body mass index (BMI) 40.0-44.9, adult SNOMED Code(s): 979275596 (5) Emesis: Status: Acute Code(s): R11.10 - Vomiting, unspecified SNOMED Code(s): 782421552 Reason for Hospitalization: 1. Strep Pharyngitis throat pain, emesis intolerance of PO liquids/solids. 2. Dehydration 3. Chronic anxiety 4. Vaping 5. BMI 43.6 6. Anxiety chronic. Prognosis at Discharge: Markedly improved, nearly back to baseline Condition at Discharge: Stable/Improved Medications at Discharge: Ambulatory Orders Medication Instructions Recorded norgestimate-ethinyl estradiol 1 ea PO BEDTIME 09/08/17 [Ortho Tri-Cyclen Lo Tablet] clonazepam [Klonopin] 0.5 mg PO dailyb prn 14 Days #14 01/16/19 tab-cap amoxicillin 500 mg capsule 500 mg PO BID 10 Days #20 cap 09/19/19 fluvoxamine 100 mg tablet 200 mg PO QHS tab 09/19/19 Written Rx for Dexter 5/325 1/2 to 1 PO BID provided to patient. CROWNING HAMMER OPERATOR printed and scanned into chart. Will send outpatient order for beto COBB as well #10. Lab/Diagnostics: Laboratory Results - last 24 hr 09/21/19 09/21/19 04:42 04:42 WBC 9.61 RBC 4.03 L Hgb 11.9 L Hct 36.1 L MCV 89.6 MCH 29.5 MCHC 33.0 RDW Coeff of Saúl 12.9 Plt Count 252 Immature Gran % (Auto) 0.3 Neut % (Auto) 85.5 H Lymph % (Auto) 11.9 [place] % (Auto) 2.3 Eos % (Auto) 0.0 Baso % (Auto) 0.0 Immature Gran # (Auto) 0.0 Neut # (Auto) 8.2 H Lymph # (Auto) 1.1 [place] # (Auto) 0.2 L Eos # (Auto) 0.0 Baso # (Auto) 0.0 Sodium 138.3 Potassium 4.42 Chloride 106.8 Carbon Dioxide 22.6 Anion Gap 13.32 BUN 7.9 Creatinine 0.62 Estimated GFR (MDRD) 116.00 BUN/Creatinine Ratio 12.74 Glucose 161.5 H Calcium 8.80 Total Bilirubin 0.22 AST 16.8 ALT 15.0 Alkaline Phosphatase 73.5 Total Protein 7.34 Albumin 4.05 Globulin 3.29 Albumin/Globulin Ratio 1.23 Education Provided to Patient and Family: 1. Strep pharyngitis 2. Antibiotic stewardship 3. Vaping/Tobacco avoidance 4. BMI 43/Weight reduction 5. Opiate Education 6. Benzo +opiate education Follow-ups: 1. Dr. Art in 1 week. Discharge Disposition: Home Hospital Course: Ms. Debi Torres presented to hospital 09/20/19 after discussion with me about inability to tolerate PO intake, emesis, worsening symptoms. She was unable to take oral abx and thus we offered outpatient fluids vs observation hospital admission. She chose the later and was admitted to obs status room 108. She received 1 G rocephin 24 hours prior, never started amoxiicillin 500mg BID that was ordered for her. She did not want steroids outpatient and thus presented with minimal improvement. Last PM she was admitted to obs with worsening dehydration, intolerance to PO intake and worsening sore throat. We admitted her to observation, continued rocephin 1 gram IV daily, was given 1 L bolus of NS, then 160ml/hr of fluids as per routine normal maintenance. Tylenol ordered, phenergan ordered. Pain was not controlled and I added morphine 2mg q 6 hours. This am I checked on patient again 7:15-7:45 and reviewed her evening documentation. Vitals this am 116/78, afebrile at 97.6, hr 65, rr 20 and O2 95%. She had a total of 1804ml in 2 voids, no BM. She did get a snack overnight. Am labs showed CBC with WBC 9.61, hgb 11.9 and mildly anemic likely dilutional, plt 252. CMP was okay with sodium 138.3, K+ 4.42, BUN 7.9, Cr 0.62, glucose 161.5. AST 16.8, alt 15. At 1900 she reported to nursing throat on fire and was given 2 mg IV morphine. Showered at 2100, ate sandwich at 2200 and noted improvement. 2300 resting, 00:00 nausea and took some phenergan. RLS noted aroun d0200 and morphine given again around 2359-2722. IVF ran through the night at 160ml. NO peripheral edema this am. She felt "like a new person" this am. This am no sore throat, tolerating PO, happy with the steroid but did not like the steroid at the same time due to RLS like symptoms. Today her symptoms are better, she is ready for d/c as she has reached the point of maximal improvement from the hospitalization. We will d/c her home, f/u in 1 week. She is recommended to start the amoxil today and use BID x 10 days. Declined steroids. We did check CROWNING HAMMER OPERATOR and will provide patient with rx for norco for the next few days. CROWNING HAMMER OPERATOR negative. 30 minutes spent on rounding and d/c of patient from hospital today, not to include charting/documentation. Reviewed labs, reviewed meds, provided new rx, discussed case josef nurse and with case management. No imaging to review. Telemetry showed ST NE 0.16 and QRS 0.08. DAY OF D/C EXAM: Vital Signs - 24 hr 09/20/19 16:45 09/20/19 17:52 09/20/19 22:00 Temperature 97.9 F 98.5 F 97.6 F Pulse Rate 98 H 108 H 91 H Respiratory Rate 19 18 16 Blood Pressure 138/74 137/83 99/48 L O2 Sat by Pulse Oximetry 98 97 95 09/21/19 02:00 09/21/19 05:06 09/21/19 08:00 Temperature 97.4 F L 97.6 F Pulse Rate 81 65 Respiratory Rate 18 20 19 Blood Pressure 120/75 116/78 O2 Sat by Pulse Oximetry 96 95 Constitutional: Appearance-No acute distress, no respiratory distress. Facial flushing is present. Appears Consistent with stated age. Orientation- Oriented x 3, alert Gait-Normal pace, normal arm movement. Build and Nutrition-[obese female] General- Patient is pleasant and cooperative with the interview and exam. Integumentary: General-No rashes, Head/Neck: Head- normocephalic and atraumatic. Neck- without visible/palpable lumps or pulsations. Palpation- No bony tenderness about head/neck along frontal, occipital, temporal, parietal, mastoid, zygoma, orbit or any other location. NO temporal artery tenderness. No TMJ tenderness. Neck Supple. Thyroid-No thyromegaly, no nodules LN: Prominent zone [address] R=L. Tenderness present. ENMT: Pinna- normal without tenderness or erythema. External auditory canal Left- normal without erythema or discharge, no excessive cerumen. External auditory canal Right-normal without erythema or discharge, no excessive cerumen. TM left- Cee/pearly, normal light reflex and anatomy TM Right- Cee/pearly, n ormal light reflex and anatomy Hearing Assessment-normal to conversational speech. Nose and sinus- No sinus tenderness along frontal/maxillary region. External appearance normal and midline. Nares- bilateral quiet airflow, no discharge. Nasal mucosa- No bleeding noted and no ulcerations observed. [place], moist. Turbinates non boggy. Lips- normal color, moist without cracks/lesions Oral Cavity/Palate- hard/soft palate intact without lesions, oral mucosa pink and moist. Dentition assessed [and average/good] and discussed appropriate oral care. Tongue normal midline. Oropharynx- pharyngeal erythema, Uvula midline. palatal arch intact. Tonsils with exudate, 3+ tonsils. No obvious post nasal drip. No exudate. Salivary glands- Non tender to palpation CHEST/LUNG: Inspection- symmetric chest wall no pectus deformity. Normal effort, no distress, no use of accessory muscles. Palpation- nontender sternum, ribline. No abnormal pulsations. Auscultation- Breath sounds normal throughout all lung pedroza. Normal tracheal sounds, Normal bronchial sounds overlying sternum, Bronchovessicular sounds normal between scapulae posteriorly, Normal vessicular breath sounds heard throughout periphery. Lungs are clear today. Adventitious sounds- No wheezes, rales, rhonchi. CARDIOVASCULAR: Carotid artery- normal, no bruits or abnormal pulsations. Jugular vein- no pulsations. Palpation/Percussion- Normal PMI, no palpable thrill Auscultation- Regular rate and rhythm. No murmur noted in sitting, supine positions. Extremities- no digital clubbing, cyanosis, edema, increased warmth. ABDOMEN: Inspection- normal and no visible pulsations. Normal contour. Auscultation- Bowel sounds normal, no abdominal bruits. Palpation/Percussion- soft, non-tender, no rebound tenderness, no rigidity (guarding), no jar tenderness, no masses. Liver-no hepatomegaly, Spleen no splenomegaly, Hernias- none. Rectal not examined. Musculoskeletal: Generalized-No generalized swelling or edema of extremities, no digital clubbing or cyanosis, neurovascularly intact all four extremities. Neurological: General- Moves all 4 extremities symmetrically. Symmetrical face and body posture. Cranial nerves- individually evaluated II-XII and intact. PERRLA, Normal EOMI, visual/special senses appear intact, Face is symmetrical and normal sensation/movement, normal tongue, normal strength/posture of neck musculature. Neuropsych: Oriented- Person, place, time. (AAOx3), Mood/affect- normal and congruent. Able to articulate well. Speech-Normal speech, normal rate, normal tone, normal use of language, volume and coherence. Thought content- normal with ability to perform basic computations and apply abstract thought/reason. Associations- intact, no SI/HI, no hallucinations, delusions, obsessions. Judgment/insight- Appropriate. Memory-Recall intact, remote and recent memory intact. Knowledge- Age appropriate fund of knowledge, concentration and attention span normal. Lymphatic: Head/Neck- normal size and non tender to palpation except for zone [address] Axillary- normal size and non tender to palpation. Femoral and Inguinal- normal size and non tender to palpation. Plan: 1. D/C Home 2. Resume home meds 3. Dexter 5/325 1/2 to 1 po BID PRN #4 4. CROWNING HAMMER OPERATOR checked and negative 5. Opiate information provided. 6. amoxil 500 BID x 10 days starting tonight 7. Will send zofran for patient. 8. F/U with me in 1 week or return to ED if worsening.
[2019-09-21] MEDS: ROCEPHIN 1 GM/50 ML D5W 1 GM/50 ML BAG IV SCH (08:18)
[2019-09-21] MEDS ORDERED: LOVENOX SUBCUT SCH (09:00)
== END 2019-09-21 10:30 | disposition home or self-care (01) ==
LOC: MEDSURG A
PROVIDERS: ADMIT Family Medicine; ATTEND Family Medicine
DX: E86.0 Dehydration; E66.9 Obesity, unspecified; M54.2 Cervicalgia; Z68.41 Body mass index [BMI] 40.0-44.9, adult; R11.10 Vomiting, unspecified; J02.0 Streptococcal pharyngitis; M79.10 Myalgia, unspecified site; R42 Dizziness and giddiness; F41.9 Anxiety disorder, unspecified; F17.210 Nicotine dependence, cigarettes, uncomplicated; R51 Headache; R10.9 Unspecified abdominal pain